=== PATIENT | female | born 1995 | race Two or more races ===

== ENCOUNTER 2018-05-25 16:43 | Emergency (ER) | payer MEDICAID ==
[~2018-05-25] VITALS: Ht 172.7 cm; Wt 98.0 kg
[2018-05-25 16:59] VITALS: BP 121/78
[2018-05-25 17:33] LABS: BASOPHILS % (AUTO) 0.4 % (0-1); EOSINOPHILS # (AUTO) 0.4 X10'3 (0-0.9); EOSINOPHILS % (AUTO) 3.9 % (0-6); HEMATOCRIT 34.9 % (35.0-45.0); LYMPHOCYTES # (AUTO) 3.1 X10'3 (1.1-4.8); LYMPHOCYTES % (AUTO) 33.4 % (21-51); MEAN CORPUSCULAR HGB CONC 31.7 % (33.0-36.5); MEAN CORPUSCULAR VOLUME 75.9 FL (78-98); MEAN PLATELET VOLUME 7.4 FL (7.4-10.4); MONOCYTES # (AUTO) 0.8 X10'3 (0-0.9); MONOCYTES % (AUTO) 8.2 % (2-12); NEUTROPHILS # (AUTO) 4.9 X10'3 (1.8-7.7); NEUTROPHILS % (AUTO) 54.1 % (42-75); PLATELET COUNT 445 X10'3 (140-440); RED CELL DISTRIBUTION WIDTH 15.4 % (11.5-14.5); WHITE BLOOD COUNT 9.1 X10'3 (4.5-11.0)
[2018-05-25] MEDS ORDERED: IBUP-1984 PO (17:35)
[2018-05-25] MEDS ORDERED: ketorolac tromethamine 15mg/ml inj. IM ONE (17:35)
[2018-05-25 17:37] LABS: URINE HCG NEGATIVE (NEG)
[2018-05-25 17:38] LABS: CLARITY,URINE CLEAR (Clear); COLOR,URINE YELLOW (Yellow); GLUCOSE, URINE NEGATIVE (Neg); KETONES,URINE NEGATIVE (Neg); LEUKOCYTE ESTERASE ,URINE NEGATIVE (Neg); NITRITES, URINE NEGATIVE (Neg); OCCULT BLOOD,URINE SMALL (Neg); PROTEIN,URINE NEGATIVE (Neg); UROBILINOGEN,URINE 0.2 E.U/dL (0.2-1.0)
[2018-05-25 17:40] LABS: UA COLLECTION TYPE CLN CATCH MIDSTREAM
[2018-05-25 17:46] LABS: ALANINE AMINOTRANSFERASE 24 U/L (12-78); ALBUMIN 3.5 G/DL (3.4-5.0); ALBUMIN/GLOBULIN RATIO 0.9 (1.1-1.5); ALKALINE PHOSPHATASE 76 IU/L (46-116); ANION GAP 8 (8-16); ASPARTATE AMINO TRANSFERASE 16 U/L (10-37); BILIRUBIN,TOTAL 0.1 MG/DL (0.1-1.0); BLOOD UREA NITROGEN 11 MG/DL (7-18); CALCIUM 9.1 MG/DL (8.5-10.1); CHLORIDE 105 MMOL/L (99-107); CREATININE 0.55 MG/DL (0.40-0.90); GLUCOSE 98 MG/DL (70-104); POTASSIUM 3.5 MMOL/L (3.5-5.1); SODIUM 141 MMOL/L (135-145); TOTAL PROTEIN 7.6 G/DL (6.4-8.2); eGFR > 90 ML/MIN
[2018-05-25 17:46] LABS: MUCUS STRANDS FEW /LPF (Neg); SQUAMOUS EPITHELIAL CELL,UR FEW /LPF (FEW)
[2018-05-25 17:49] LABS: BACTERIA,URINE FEW /HPF (Neg); WBC,URINE 0-4 /HPF (0-4)
[2018-05-25 17:58] LABS: PROTHROMBIN TIME 10.5 SECONDS (9.0-12.0)
== END 2018-05-25 18:19 | disposition home or self-care (01) ==
LOC: ER 16:44
DX: M94.0 Chondrocostal junction syndrome [Tietze] (principal); Z79.899 Other long term (current) drug therapy
CPT/HCPCS: 36415; 80053; 81001; 81025; 85025; 85610; 96372; 99284; J1885

== ENCOUNTER 2018-12-01 11:16 | Emergency (ER) | payer MEDICAID ==
[~2018-12-01] VITALS: Ht 170.2 cm; Wt 98.0 kg
[2018-12-01 11:47] VITALS: BP 114/74
[2018-12-01] MEDS ORDERED: TETanus/Pertussis (Acell)/Diphther VAC/PF (Tdap-Adult) 0.5ml syringe IM ONE (12:35)
== END 2018-12-01 13:24 | disposition home or self-care (01) ==
LOC: ER 11:16
DX: S61.452A Open bite of left hand, initial encounter (principal); W54.0XXA Bitten by dog, initial encounter; Y93.89 Activity, other specified; Y92.89 Other specified places as the place of occurrence of the external cause; Y99.8 Other external cause status
CPT/HCPCS: 90471; 90715; 99283

== ENCOUNTER 2019-06-07 12:26 | Emergency (ER) | payer MEDICAID ==
[~2019-06-07] VITALS: Ht 172.7 cm; Wt 95.5 kg
[2019-06-07 12:39] VITALS: BP 116/73
[2019-06-07] MEDS ORDERED: famotidine 20mg tablet PO ONE (13:25)
[2019-06-07] MEDS ORDERED: ondansetron 4mg rapidly disintigrating tab PO ONE (13:25)
[2019-06-07 14:21] LABS: CLARITY,URINE CLEAR (Clear); COLOR,URINE YELLOW (Yellow); GLUCOSE, URINE NEGATIVE (Neg); KETONES,URINE 15 mg/dl (Neg); LEUKOCYTE ESTERASE ,URINE NEGATIVE (Neg); NITRITES, URINE NEGATIVE (Neg); OCCULT BLOOD,URINE MODERATE (Neg); PROTEIN,URINE NEGATIVE (Neg); UROBILINOGEN,URINE 0.2 E.U/dL (0.2-1.0)
[2019-06-07 14:22] LABS: URINE HCG NEGATIVE (NEG)
[2019-06-07 14:23] LABS: UA COLLECTION TYPE CLN CATCH MIDSTREAM
[2019-06-07 14:30] LABS: BACTERIA,URINE NONE SEEN /HPF (Neg); MUCUS STRANDS FEW /LPF (Neg); SQUAMOUS EPITHELIAL CELL,UR FEW /LPF (FEW); WBC,URINE NONE SEEN /HPF (0-4)
[2019-06-07] MEDS ORDERED: ONDA4TAB6 PO (14:32)
== END 2019-06-07 14:44 | disposition home or self-care (01) ==
LOC: ER 12:26
DX: K52.9 Noninfective gastroenteritis and colitis, unspecified (principal); R05 Cough; R09.81 Nasal congestion; R68.83 Chills (without fever); Z79.899 Other long term (current) drug therapy
CPT/HCPCS: 12002; 81001; 81025; 90471; 96372; 99283; 99284

== ENCOUNTER 2025-04-06 13:52 | Emergency (ER) | payer MEDICAID ==
[~2025-04-06] VITALS: Ht 165.1 cm; Wt 115.5 kg
[~2025-04-06 13:52] MED LIST: ONDA4TAB6 PO
[2025-04-06 13:55] VITALS: TEMP 97.8; O2SAT 96
--- NOTE | 2025-04-06 14:39 | Physician Documentation ---
Addendum CHIEF COMPLAINT/HPI: The patient is a 29-year-old primigravida, approximately 30 weeks, who has been having low back pain and feels some pressure but no contractions. She became concerned and wanted to make sure everything is okay. REVIEW OF SYSTEMS: Constitutional: Denies chills, fatigue, fever, weight gain or weight loss. HEENT: Denies hearing loss, sinus pressure or visual changes. Respiratory: Denies cough, shortness of breath or wheezing. Cardiovascular: Denies chest pain, pain while walking (claudication), edema or palpitations. Gastrointestinal: Denies abdominal pain, blood in stool, constipation, diarrhea, heartburn, loss of appetite, nausea or vomiting. Genitourinary: Denies painful urination (dysuria), excessive amount of urine (polyuria) or urinary frequency. Metabolic/Endocrine: Denies cold intolerance, heat intolerance, excessive thirst (polydipsia) or excessive hunger (polyphagia). Neurological: Denies dizziness, extremity numbness, extremity weakness, headaches, seizures or tremors. Psychiatric: Denies anxiety or depression. Integumentary: Denies breast discharge, breast lump, hives, mole change(s), rash or skin lesion. Musculoskeletal: Denies back pain, joint pain, joint swelling or neck pain. Hematologic: Denies easily bleeding, easily bruises, lymphedema or issues with blood clots. Immunologic: Denies food allergies or seasonal allergies. PHYSICAL EXAMINATION: Vitals and nursing note reviewed. Constitutional: General: Patient is awake, alert, oriented x 4 in no acute distress and well appearing. Speech is clear and lucid. Appearance: Normal appearance. Patient is not ill-appearing, toxic-appearing or diaphoretic. HENT: Head: Normocephalic and atraumatic. Mouth/Throat: Mouth: Mucous membranes are moist. Pharynx: Oropharynx is clear. Eyes: General: No scleral icterus. Extraocular Movements: Extraocular movements intact. Pupils: Pupils are equal, round, and reactive to light. Neck: Supple, no Kernig or Brudzinski sign. Cardiovascular: Rate and Rhythm: Normal rate and regular rhythm. Heart sounds: No murmur heard. Pulmonary: Effort: No respiratory distress. Breath sounds: No wheezing, rhonchi or rales. Abdominal: General: There is no distension. Palpations: There is no fluid wave, hepatomegaly or mass. Tenderness: There is no abdominal tenderness. There is no guarding. Musculoskeletal: General: No swelling or deformity. Skin: Coloration: Skin is not jaundiced. Findings: No erythema or rash. Neurological: Mental Status: Patient is alert. MEDICAL DECISION MAKING: This 29-year-old primigravida, 30 weeks gestation, has been having some low back pain and feeling of lower abdominal pressure. She has no cramping or contractions and no discharge or bleeding. An ultrasound reveals movements, heart with appropriate rate. Urinalysis is unremarkable. I am going to reassure the patient and discharge her home. Departure Disposition: 01 HOME / SELF CARE / HOMELESS Impression: Primary Impression: Third trimester at less than 36 weeks Condition: Stable Additional Instructions: Please follow-up with your usual care. Return here for worsening symptoms or new/unusual symptoms. Education Educated: Patient Educated regarding: diagnosis, need for follow up KIT LOVE MD Apr 06, 2025 14:39
[2025-04-06 16:13] VITALS: BP 119/79; PULSE 87; RESP 20
[2025-04-06 16:45] LABS: LEUKOCYTE ESTERASE ,URINE NEGATIVE (Neg); NITRITES, URINE NEGATIVE (Neg); OCCULT BLOOD,URINE NEGATIVE (Neg)
[2025-04-06 16:46] LABS: UA COLLECTION TYPE CLN CATCH MIDSTREAM
--- NOTE | 2025-04-06 17:19 | RADIOLOGY REPORT ---
OB ULTRASOUND, LIMITED CLINICAL INDICATION: DECRESED MOVEMENT TECHNIQUE: Multiple grayscale ultrasound and M-mode images were obtained of the pelvis for evaluation of intrauterine . COMPARISON: None FINDINGS: A single living fetus is seen in cephalic presentation. Biparietal diameter: 8.97 cm (36 weeks, 2 days) Head Circumference: 31.44 cm (35 weeks, 2 days) Abdomen Circumference: 31.6 cm (35 weeks, 4 days) Femur Length: 6.88 cm (35 weeks, 2 days) Estimated weight: 2700 grams (+/- 405 grams). Placenta: Fundal. Amniotic fluid: Visibly normal. ALFRED 12.8 cm heart rate: 150 beats/min. A complete anatomic survey was not performed on this exam. movement was observed. IMPRESSION: 1. Single living intrauterine with an estimated gestational age of 35 weeks, 4 days, corresponding to an estimated date of delivery of 05/07/2025.
== END 2025-04-06 17:10 | disposition home or self-care (01) ==
LOC: ER 13:52
DX: O99.891 Other specified diseases and conditions complicating pregnancy (principal); M54.50 Low back pain, unspecified; Z3A.36 36 weeks gestation of pregnancy
CPT/HCPCS: 76815; 81003; 99284